=== PATIENT | female | born 1960 | race African-American/Black ===

== ENCOUNTER 2017-11-30 15:44 | Outpatient (CLI) | payer MEDICARE, MEDICAID ==
--- NOTE | 2017-11-30 16:57 | MRI ---
NONCONTRAST MRI LUMBAR SPINE 11/30/17 HISTORY: Radiculopathy of lumbar region. Back pain for two weeks radiating down into legs. FINDINGS: The conus medullaris is normal in appearance and terminates at the L1-2 level. Normal signal intensit y is demonstrated in the bone marrow. L1-2 and L2-3 levels: There is no disc bulge or disc herniation. Central spinal canal and neural fora lobito are patent at these levels. L3-4 level: There is a mild broad based disc bulge slightly greater on the left. This does result in minimal left sided neural foraminal narrowing. Right neural foramen is patent. Mild facet degenerativ e change is present at this level. L4-5 level: There is grade I anterolisthesis of L4 on L5. There is a mild broad based disc osteophyte complex. The facet hypertrophic changes are seen at this level. There is mild narrowing of the centr al spinal canal with mild bilateral neural foraminal narrowing. L5-S1 level: There is a mild disc bulge, but the central spinal canal and neural foramina are patent. Retroperitoneal structures have a normal MRI appearance. IMPRESSION: Mild degenerative changes in the lower lumbar spine, greatest at the L4-5 level where there is grade I anterolisthesis of L4 on L5 with only mild degrees of neural foraminal narrowing present. POS: MARYCARMEN
== END 2017-11-30 15:45 | disposition home or self-care (01) ==
LOC: SCSMRI 15:44
PROVIDERS: ATTEND Nurse Practitioner Family
DX: M47.26 Other spondylosis with radiculopathy, lumbar region (principal); M43.16 Spondylolisthesis, lumbar region
CPT/HCPCS: 72148

== ENCOUNTER 2017-12-12 14:41 | Outpatient (CLI) | payer MEDICARE, MEDICAID, OTHER | END 2017-12-12 14:42 | disposition home or self-care (01) | LOC: BICRAD 14:41 | PROVIDERS: ATTEND Nurse Practitioner Family | DX: M54.16 Radiculopathy, lumbar region (principal); M43.16 Spondylolisthesis, lumbar region; M48.061 Spinal stenosis, lumbar region without neurogenic claudication | CPT/HCPCS: 72100 ==

== ENCOUNTER 2020-02-26 14:11 | Day surgery (SDC) | payer MEDICARE, MEDICAID ==
[~2020-02-26 14:11] MED LIST: SODIUM CHLORIDE 0.9% IV SCH; TOCILIZUMAB IV SCH
[2020-02-26 14:41] VITALS: BP 123/73; TEMP 98.7
== END 2020-02-26 16:04 | disposition home or self-care (01) ==
LOC: ONC/OP 14:11
PROVIDERS: ATTEND Internal Medicine Rheumatology
DX: M05.79 Rheumatoid arthritis with rheumatoid factor of multiple sites without organ or systems involvement (principal); Z88.0 Allergy status to penicillin; Z88.1 Allergy status to other antibiotic agents
CPT/HCPCS: 96413; J3262; J3490

== ENCOUNTER → 2020-03-25 | Day surgery (SDC) | payer MEDICARE, MEDICAID ==
[~2020-03-25] MED LIST changes: +Acetaminophen 325 MG TAB PO PRN; +Sodium Chloride 0.9% 1,000 ML IV SCH; +diphenhydrAMINE 25 MG CAP PO PRN; +diphenhydrAMINE 50 MG/ML VIAL IM/IV PRN
[2020-03-25 14:01] VITALS: BP 129/64; TEMP 98.5
== END ==
LOC: ONC/OP 13:24
PROVIDERS: ATTEND Internal Medicine Rheumatology
DX: M06.9 Rheumatoid arthritis, unspecified (principal); Z88.1 Allergy status to other antibiotic agents; Z88.2 Allergy status to sulfonamides
CPT/HCPCS: 96413

== ENCOUNTER 2020-06-30 15:24 | Day surgery (SDC) | payer MEDICARE, MEDICAID ==
[2020-06-30] MEDS ORDERED: Sodium Chloride 0.9% 20 ML ONE (15:30)
[2020-06-30 16:17] VITALS: BP 133/63
[2020-06-30 16:24] LABS: #Eosinphils 0.1 thou/uL (0.0-0.7); #Lymphocytes 2.1 thou/uL (1.20-3.40); #Monocytes 0.8 thou/uL (0.11-0.59); #Neutrophils 4.4 thou/uL (1.40-6.50); %Basophils 0.3 % (0.0-1.0); %Eosinophils 1.3 % (0.0-10.0); %Lymphocytes 28.7 % (21.0-51.0); %Neutrophils 58.7 % (42.0-75.0); Hemoglobin 11.5 g/dL (12.0-16.0); Mean Corpuscular Hemoglobin 32.1 pg (27.0-31.0); Mean Corpuscular Volume 97.4 fL (78.0-98.0); Mean Platelet Volume 10.5 fL (7.4-10.4); Platelet Count 183 thou/uL (130-400); RBC Distribution Width 18.2 % (11.5-14.5); Red Blood Cell (RBC) Count 3.58 mill/uL (4.20-5.40); White Blood Cell (WBC) Count 7.4 thou/uL (4.8-10.8)
== END 2020-06-30 17:10 | disposition home or self-care (01) ==
LOC: ONC/OP 15:24
PROVIDERS: ATTEND Internal Medicine Rheumatology
DX: M05.29 Rheumatoid vasculitis with rheumatoid arthritis of multiple sites (principal); Z88.0 Allergy status to penicillin; Z88.1 Allergy status to other antibiotic agents
CPT/HCPCS: 36415; 85025; 85652; 86480; 96413; Q0163

== ENCOUNTER 2020-07-28 14:55 | Day surgery (SDC) | payer MEDICARE, MEDICAID ==
[~2020-07-28 14:55] MED LIST changes: -Sodium Chloride 0.9% 1,000 ML IV SCH
[2020-07-28 15:31] LABS: #Basophils 0.1 thou/uL (0.0-0.2); #Eosinphils 0.1 thou/uL (0.0-0.7); #Lymphocytes 1.8 thou/uL (1.20-3.40); #Monocytes 0.4 thou/uL (0.11-0.59); %Eosinophils 2.4 % (0.0-10.0); %Lymphocytes 40.8 % (21.0-51.0); %Neutrophils 44.9 % (42.0-75.0); Hemoglobin 11.9 g/dL (12.0-16.0); Mean Corpuscular HGB CONC 33.1 g/dL (32.0-36.0); Mean Corpuscular Hemoglobin 32.3 pg (27.0-31.0); Mean Corpuscular Volume 97.4 fL (78.0-98.0); Mean Platelet Volume 11.1 fL (7.4-10.4); Platelet Count 226 thou/uL (130-400); RBC Distribution Width 17.3 % (11.5-14.5); Red Blood Cell (RBC) Count 3.69 mill/uL (4.20-5.40); White Blood Cell (WBC) Count 4.4 thou/uL (4.8-10.8)
[2020-07-28 16:39] LABS: Albumin 3.7 g/dL (3.5-5.0)
[2020-07-28 16:40] LABS: Calcium 8.4 mg/dL (7.8-10.44); Chloride 106 mmol/L (98-107); Potassium 4.1 mmol/L (3.5-5.1); Sodium 139 mmol/L (136-145)
[2020-07-28 16:41] LABS: Globulin 2.7 g/dL (2.4-3.5); Glucose 98 mg/dL (70-105); Protein, Total 6.4 g/dL (6.0-8.3)
[2020-07-28 16:42] LABS: Anion Gap 13 mmol/L (10-20); Carbon Dioxide 24 mmol/L (22-29)
[2020-07-28 16:43] LABS: Bilirubin, Total 0.4 mg/dL (0.2-1.2)
[2020-07-28 16:44] LABS: Alkaline Phosphatase 96 U/L (40-110); CRP (Inflammatory) Less than 0.50 mg/dL (= or < 0.5); Calc. Creatinine Clearance 107 mL/min (70-130); Estimated GFR-MDRD 81
[2020-07-28 16:45] LABS: BUN (Urea Nitrogen) 15 mg/dL (9.8-20.1)
[2020-07-28 16:46] LABS: AST (SGOT) 16 U/L (5-34)
[2020-07-28 16:47] LABS: ALT (SGPT) 10 U/L (8-55)
== END 2020-07-28 16:57 | disposition home or self-care (01) ==
LOC: ONC/OP 14:55
PROVIDERS: ATTEND Internal Medicine Rheumatology
DX: M05.29 Rheumatoid vasculitis with rheumatoid arthritis of multiple sites (principal); Z88.0 Allergy status to penicillin; Z88.1 Allergy status to other antibiotic agents
CPT/HCPCS: 36415; 80053; 85025; 85652; 86140; 96413

== ENCOUNTER → 2020-08-25 | Day surgery (SDC) | payer MEDICARE, MEDICAID ==
[~2020-08-25] MED LIST changes: +Sodium Chloride 0.9% 20 ML ONE
[2020-08-25 16:09] VITALS: BP 112/57
== END ==
LOC: ONC/OP 14:43
PROVIDERS: ATTEND Internal Medicine Rheumatology
DX: M05.29 Rheumatoid vasculitis with rheumatoid arthritis of multiple sites (principal); Z88.0 Allergy status to penicillin; Z88.1 Allergy status to other antibiotic agents
CPT/HCPCS: 96413; J3262; J3490; Q0163

== ENCOUNTER 2020-12-03 14:22 | Day surgery (SDC) | payer MEDICARE, MEDICAID ==
[~2020-12-03 14:22] MED LIST changes: +Sodium Chloride 0.9% 1,000 ML IV SCH; -Sodium Chloride 0.9% 20 ML ONE
[2020-12-03 15:06] VITALS: BP 143/65; TEMP 98.3
== END 2020-12-03 16:35 | disposition home or self-care (01) ==
LOC: ONC/OP 14:22
PROVIDERS: ATTEND Internal Medicine Rheumatology
DX: M05.29 Rheumatoid vasculitis with rheumatoid arthritis of multiple sites (principal); Z88.0 Allergy status to penicillin; Z88.1 Allergy status to other antibiotic agents
CPT/HCPCS: 96413; J3262; J3490

== ENCOUNTER → 2020-12-31 | Day surgery (SDC) | payer MEDICARE, MEDICAID ==
[2020-12-31 14:44] VITALS: BP 136/65; TEMP 98.4
[2020-12-31 15:09] LABS: #Basophils 0.1 thou/uL (0.0-0.2); #Eosinphils 0.1 thou/uL (0.0-0.7); #Lymphocytes 2.4 thou/uL (1.20-3.40); #Neutrophils 3.6 thou/uL (1.40-6.50); %Basophils 0.8 % (0.0-1.0); %Eosinophils 1.6 % (0.0-10.0); %Lymphocytes 33.9 % (21.0-51.0); %Monocytes 13.3 % (0.0-10.0); %Neutrophils 50.4 % (42.0-75.0); Hemoglobin 11.6 g/dL (12.0-16.0); Mean Corpuscular Hemoglobin 31.6 pg (27.0-31.0); Mean Corpuscular Volume 98.9 fL (78.0-98.0); Mean Platelet Volume 8.4 fL (7.4-10.4); Platelet Count 238 thou/uL (130-400); RBC Distribution Width 17.8 % (11.5-14.5); Red Blood Cell (RBC) Count 3.66 mill/uL (4.20-5.40); White Blood Cell (WBC) Count 7.1 thou/uL (4.8-10.8)
[2020-12-31 15:32] LABS: ALT (SGPT) 13 U/L (8-55); AST (SGOT) 20 U/L (5-34); Albumin 3.9 g/dL (3.5-5.0); Alkaline Phosphatase 114 U/L (40-110); Anion Gap 14 mmol/L (10-20); BUN (Urea Nitrogen) 15 mg/dL (9.8-20.1); Bilirubin, Total 0.4 mg/dL (0.2-1.2); CRP (Inflammatory) Less than 0.50 mg/dL (= or < 0.5); Calc. Creatinine Clearance 100 mL/min (70-130); Calcium 8.7 mg/dL (7.8-10.44); Carbon Dioxide 24 mmol/L (22-29); Chloride 109 mmol/L (98-107); Globulin 3.2 g/dL (2.4-3.5); Glucose 78 mg/dL (70-105); Potassium 3.7 mmol/L (3.5-5.1); Protein, Total 7.1 g/dL (6.0-8.3); Sodium 143 mmol/L (136-145)
== END ==
LOC: ONC/OP 14:19
PROVIDERS: ATTEND Internal Medicine Rheumatology
DX: M05.29 Rheumatoid vasculitis with rheumatoid arthritis of multiple sites (principal); Z88.0 Allergy status to penicillin; Z88.1 Allergy status to other antibiotic agents
CPT/HCPCS: 80053; 85025; 85652; 86140; 96413; J3262; J3490

== ENCOUNTER 2021-01-28 14:18 | Day surgery (SDC) | payer MEDICARE, MEDICAID ==
[2021-01-28 14:50] VITALS: BP 131/60; TEMP 98.6
== END 2021-01-28 16:39 | disposition home or self-care (01) ==
LOC: ONC/OP 14:18
PROVIDERS: ATTEND Internal Medicine Rheumatology
DX: M05.29 Rheumatoid vasculitis with rheumatoid arthritis of multiple sites (principal); Z88.0 Allergy status to penicillin; Z88.1 Allergy status to other antibiotic agents
CPT/HCPCS: 96413; J3262; J3490